=== PATIENT | male | born 1995 | race African-American/Black ===

== ENCOUNTER 2024-03-08 19:38 | Inpatient (IN) | payer MEDICAID, SELFPAY ==
[2024-03-08 19:48] VITALS: BP 122/63; PULSE 101; RESP 16; TEMP 36.6; O2SAT 99
[2024-03-08 19:54] LABS: Glucose Point of Care > 500 mg/dl (65-105)
[2024-03-08 20:13] LABS: Basophils Percent Auto 0.2 % (0.2-1.2); Eosinophils Percent Auto 0.1 % (0-4.4); Hematocrit 45.4 % (42.0-52.0); Hemoglobin 15.2 g/dL (14.0-18.0); Immature Granulocyte Absolute 0.17 K/mm3 (0.00-0.031); Immature Granulocyte Percent A 0.9 % (0-0.5); Lymphocytes Absolute Auto 2.19 K/mm3 (0.9-3.2); Lymphocytes Percent Auto 11.2 % (18.3-44.2); Mean Corpuscular HGB Conc 33.5 g/dl (32-36); Mean Corpuscular Volume 89.7 fl (80-100); Mean Platelet Volume 12.5 fl (7.4-10.4); Monocytes Absolute Auto 0.8 K/mm3 (0.1-0.6); Monocytes Percent Auto 3.8 % (2.6-8.5); Neutrophils Absolute Auto 16.3 K/mm3 (1.3-6.7); Neutrophils Percent Auto 83.8 % (45.5-73.1); Platelet Count Result 249 k/mm3 (150-375); Red Blood Count 5.06 M/mm3 (4.6-6.20); White Blood Count 19.5 K/mm3 (4.5-10.0)
[2024-03-08 21:04] LABS: Alanine Aminotransferase 31 U/L (6-50); Albumin Level 4.5 g/dL (3.5-5.1); Alkaline Phosphatase 164 U/L (38-126); Aspartate Amino Transferase 32 U/L (17-59); Bilirubin,Total 0.9 mg/dL (0.2-1.3); Blood Urea Nitrogen 39 mg/dL (9-20); Calcium 8.7 mg/dL (8.4-10.2); Carbon Dioxide < 5 mmol/L (22-30); Chloride 87 mmol/L (98-107); Estimated CRCL calculation 54 ml/min; Estimated Glomerular Filt Rate 52; Magnesium 2.1 mg/dL (1.6-2.3); Potassium 6.4 mmol/L (3.4-5.0); Sodium 122 mmol/L (137-145)
[2024-03-08 21:12] LABS: Glucose 640 mg/dL (65-110)
--- NOTE | 2024-03-08 21:47 | ED.GENADULT ---
HPI - General Adult General Chief complaint: Recheck/Abnormal Lab/Rx Stated complaint: out of insulin, Nausea Time Seen by Provider: 03/08/24 21:33 History of Present Illness HPI narrative: Patient is a 28-year-old male who presents to the emergency department this evening complaining of nausea, 1 episode of vomiting yesterday, lightheadedness, and body aches. Patient admits that he is an insulin-dependent diabetic and recently moved to this area and ran out of his insulin. Patient admits that he has not had insulin for the past 3 days and has not been able to get insurance to get his insulin. Patient normally takes 48 units of Lantus at night. Admits that he has been in DKA in the past a few times. Currently resting comfortably in bed and denying any chest pain, shortness of breath, abdominal pain, dysuria or hematuria. No additional symptoms or concerns at this time. Related Data Allergies Allergy/AdvReac Type Severity Reaction Status Date / Time No Known Allergies Allergy Verified 03/08/24 19:40 Review of Systems Review of Systems: All systems are reviewed and are negative unless stated otherwise in the HPI. Exam Narrative: General: Alert, awake, afebrile, in no acute distress. HEENT: PERRL, no rhinorrhea, no post nasal drip, oropharynx clear. Cardiovascular: Regular rate and rhythm, no murmurs, rubs or gallops, no peripheral edema. Respiratory: Clear to auscultation bilaterally, no tachypnea, no wheezing, no rhonchi, no rubs, no respiratory distress. Abdomen: Soft, nontender, nondistended, no rebound, no guarding, no peritoneal signs. Musculoskeletal: No joint swelling or deformity, normal muscle tone. Skin: No rashes or petechia, no signs of infection. Neurological: Alert and oriented to person, place, and time. Follows all commands. No focal deficits, speech is clear and fluent. Course Vital Signs Vital signs: Vital Signs Temperature 97.8 F 03/08/24 19:48 Pulse Rate 101 H 03/08/24 19:48 Respiratory Rate 16 03/08/24 19:48 Blood Pressure 122/63 03/08/24 19:48 Pulse Oximetry 99 03/08/24 19:48 Oxygen Delivery Room Air 03/08/24 19:48 Temperature 97.8 F 03/08/24 19:48 Pulse Rate 101 H 03/08/24 19:48 Respiratory Rate 16 03/08/24 19:48 Blood Pressure 122/63 03/08/24 19:48 Pulse Oximetry 99 03/08/24 19:48 Oxygen Delivery Room Air 03/08/24 19:48 Medical Decision Making MDM Narrative Medical decision making narrative: The patient was evaluated by myself in the emergency department. History is obtained from patient who is an independent historian and physical exam was performed. External medical records were reviewed at this time. IV was established and pertinent tests were ordered. Patient was administered 2 L IV fluid bolus with normal saline. Laboratory results obtained revealing a leukocytosis of 19.5, sodium of 122, potassium 6.4, chloride 87, carbon dioxide less than 5, BUN 39, creatinine 1.6, glucose 640, phosphorus 8, beta hydroxybutyrate 11.3. This time an ABG was ordered and is currently pending. Patient was started on IV insulin at a rate of 0.1 units/kg per hour. Case was discussed with the on-call mass communications instructor Dr. Vogel at 0 regarding ICU admission and per his request a 3rd L of normal saline bolus was ordered. Urinalysis revealed 2+ ketones, 3+ glucose and 1+ protein. Differential diagnosis considerations include hyperglycemia, dehydration, electrolyte derangements, DKA, acute viral syndrome. Comorbidities impacting this visit include history of insulin-dependent diabetes mellitus. I have evaluated and discussed social determinants of health with the patient that could potentially impact subsequent diagnosis and treatment plans. On repeat assessment of the patient, reevaluation revealed that the patient is doing well and is in no acute distress. Patient symptoms have improved since he arrived to our emergency department. Repeat vital signs we
[2024-03-08 22:06] LABS: Alveolar/Arterial O2 Gradient < 0.0 mmHg; Carboxyhemoglobin 0.7 % THb (0-2.0); Fractional Inspired Oxygen 21 %; HCO3 ABG 6.5 mEq/l (22.0-26.0); Methemoglobin ABG 0.4 %THb (0-1.5); Oxygen Content ABG 19.6 %vol (16.0-22.0); Oxygen Saturation ABG 97.9 % (95.0-100.0); Oxyhemoglobin 97.3 % THb (90.0-100.0); PO2 FiO2 Ratio Arterial Blood 6.29 %; Reduced Hemoglobin 1.6 %THb (0-5.0); Total Hemoglobin 14.2 g/dL (12.0-18.0)
[2024-03-08 22:09] LABS: Modified Allen's Test Pass; PCO2 ABG 18.6 mmHg (35.0-45.0); Site Drawn RIGHT RADIAL; pH ABG 7.161 (7.350-7.450)
[2024-03-08 22:19] LABS: Add Urine Microscopic? YES; Appearance Urine Clear (Clear); Bacteria Urine None Seen /hpf; Bilirubin Urine Negative (Negative); Blood Urine Trace (Negative); Color Urine Yellow (Yellow); Glucose Urine UA 3+ mg/dL (Negative); Ketones Urine 2+ mg/dL (Negative); Leukocyte Esterase Ur Negative LEU/UL (Negative); Need Manual Microscopic Reviewed; Nitrate Urine Negative (Negative); Protein Urine 1+ mg/dL (Negative); RBC Urine 0-2 /hpf (0-2); Specific Grav Ur 1.023 (1.001-1.035); Squamous Epithelial Cell Urine None Seen /hpf (Few); Urobilinogen Urine 0.2 mg/dL (<2.0); WBC Urine 0-5 /hpf (0-3); pH Urine 5.5 (5.0-9.0)
[2024-03-08] MEDS: SODIUM CHLORIDE 0.9% IV 1,000 ML 999 ML IV CONT ×2 (22:38→23:37)
[2024-03-08 23:11] VITALS: BP 104/70; PULSE 102; RESP 17; O2SAT 99
[2024-03-08 23:19] LABS: Glucose Point of Care > 500 mg/dl (65-105)
--- NOTE | 2024-03-08 23:31 | ADMGEN ---
This patient, Ori Rea, was admitted to Intensive Care Unit-9. Patient/family oriented to hospital policies and general routines including ID bracelet, bed and alarms, visiting hours, pain management, procedures, bathroom and other care routines, personal items, smoking policy, room service/diet, and visiting hours. Information on how to activate the Rapid Response Team has been discussed. Patient/Family are encouraged to report perceived risks to care and to ask questions if they do not understand what they are told or what they should do.
[2024-03-08 23:32] VITALS: BMI 23.9
[2024-03-08 23:35] VITALS: BP 123/65; PULSE 100; RESP 17; O2SAT 97
[2024-03-08] MEDS: INSULIN HUMAN REGULAR (*BKC) 100 UNITS in SODIUM CHLORIDE 0.9% IV 99 ML 6.5 UNITS IV CONT (23:35)
[2024-03-08 23:37] VITALS: PULSE 107
[2024-03-08 23:52] VITALS: PULSE 100; RESP 17; O2SAT 99
[2024-03-09] VITALS (14 sets, daily range): BP systolic 84–153; BP diastolic 49–98; PULSE 75–99; RESP 13–27; TEMP 36.4–37; O2SAT 96–100; BMI 25.4
[2024-03-09 00:26] LABS: Blood Urea Nitrogen 43 mg/dL (9-20); Calcium 8.1 mg/dL (8.4-10.2); Carbon Dioxide < 5 mmol/L (22-30); Chloride 91 mmol/L (98-107); Estimated CRCL calculation 51 ml/min; Estimated Glomerular Filt Rate 58; Glucose 685 mg/dL (65-110); Potassium 6.8 mmol/L (3.4-5.0); Sodium 124 mmol/L (137-145)
[2024-03-09] MEDS: SODIUM CHLORIDE 0.9% IV 1,000 ML 999 ML IV CONT (00:49)
[2024-03-09 00:51] LABS: Hemoglobin A1C 10.3 % (<5.7)
--- NOTE | 2024-03-09 01:00 | PC.NURSE ---
Serum blood glucose 658. Per protocol, pt received regular insulin bolus of 3.25 units and gtt was increased to 15.5 units. Order confirmed with Dr. Pulliam. Dose verified with NORMAN Rosales.
[2024-03-09 01:07] LABS: Glucose Point of Care > 500 mg/dl (65-105)
[2024-03-09] MEDS: SODIUM CHLORIDE 0.9% IV 1,000 ML 150 ML IV CONT (01:57)
[2024-03-09 01:58] LABS: Glucose Point of Care 481 mg/dl (65-105)
[2024-03-09 02:36] LABS: MRSA (PCR) NOT DETECTED (NOT DETECTE)
[2024-03-09 02:55] LABS: Glucose Point of Care 464 mg/dl (65-105)
[2024-03-09 03:43] LABS: Anion Gap 22 mmol/L (4-12); Blood Urea Nitrogen 43 mg/dL (9-20); Calcium 7.6 mg/dL (8.4-10.2); Carbon Dioxide 7 mmol/L (22-30); Chloride 100 mmol/L (98-107); Estimated CRCL calculation 54 ml/min; Estimated Glomerular Filt Rate > 60; Glucose 452 mg/dL (65-110); Potassium 4.6 mmol/L (3.4-5.0); Sodium 129 mmol/L (137-145)
[2024-03-09 04:02] LABS: Glucose Point of Care 425 mg/dl (65-105)
--- NOTE | 2024-03-09 04:59 | PM.IMHP ---
H&P: HPI History of Present Illness Date/Time: 03/09/24 04:59 Chief Complaint: Ran out of insulin 3 days ago Narrative: 28-year-old male with past medical history of type 1 diabetes mellitus who presented to the ER after being with without insulin for 3 days. Patient recently moved to [place] and has been unable to get insurance and does not have the ability to get his medications. He usually takes 48 units of Lantus at night. He became concerned yesterday due to developing symptoms of dizziness, thirst common nausea and body aches. He subjectively felt hot. He reports that he has a headache currently but he thinks that that is because he is thirsty. He noticed that he has not been able to produce very much urine over the last 24 hours prior to coming to the ER. Since he has arrived to the hospital he has had slight increase in urine output but still does not think he is back to normal. He denies dysuria, hematuria or or urinary urgency. He has not had any GI symptoms. He does smell strongly ketones. On arrival to the ER his glucoses were 640. He had a pH of 7.1 and a critically low serum bicarb. His potassium was also critically high due to potassium shifts with his acidosis. He has a evidence of acute kidney injury knee denies any history of chronic kidney disease. He denies any history of diabetic peripheral neuropathy but does have a chronic wound on his right lateral malleolus is been present since December. He denies any drainage erythema or warmth from the area. The wound has been healing it just been has been healing slow. He reports that his A1c is been anywhere between 8 and 14. He does not recall what his last A1c was. He last saw his diabetic doctor around December. He states that he is from [place] and has been traveling back and forth between [place] and here to visit his sister. He only recently decided to move to the area and stay here. He has only been here for about a week and has been out of insulin for 3 days. He reports that he was post have a job interview yesterday but felt so ill that he had come to the ER instead. Review of Systems Review of Systems: 12 systems were reviewed with pertinent positives and negatives per HPI. Except as documented in the HPI, all other systems were reviewed and are negative. [facility] Past Medical History Medical History (Updated 03/09/24 @ 05:05 by Esperanza Pulliam DO) Anxiety and depression Type 1 diabetes mellitus Surgical History Surgical History (Updated 03/09/24 @ 08:59 by Esperanza Pulliam DO) No history of previous surgery Family History Family History Mother Hypertension Grandparent Diabetes mellitus Social History Social History (Updated 03/09/24 @ 09:02 by Esperanza Pulliam DO) Social History: The patient reports that he has worked various jobs. He has a high school education. He recently moved to [place] from [place] February 2024. He did this to be closer to his sister. He does not have children and is not . He used to smoke a pack of cigarettes per day for 10 years but quit smoking December 2023. He does not drink alcohol but he does use marijuana daily. Code status: Full code Surrogate decision maker: Don Aburto (Sister) Smoking packs per day: 1 Smoking cigarettes per day: 20.0 Years smoked: 10 Smoking pack-years: 10.00 Smoking status: Former smoker Alcohol intake: never Substance use type: marijuana Other substance usage details: daily use of marijuana Do You Feel Safe in your Home?: Yes Lack of Transportation: No Lack of Food: Never True Current Housing: I Have Housing Concerned About Future Housing: No Difficulty Paying Gas/Electric Bills: No Difficulty Paying for Meds: YES Currently Unemployed: YES Education: High School Diploma/GED Difficulty w/ Childcare or Family Care: No Spiritual care concerns: No Meds
[2024-03-09 05:05] LABS: Glucose Point of Care 371 mg/dl (65-105)
[2024-03-09 05:34] LABS: Hematocrit 38.7 % (42.0-52.0); Hemoglobin 13.2 g/dL (14.0-18.0); Mean Corpuscular HGB Conc 34.1 g/dl (32-36); Mean Corpuscular Hemoglobin 30.4 pg (26-34); Mean Corpuscular Volume 89.2 fl (80-100); Mean Platelet Volume 12.6 fl (7.4-10.4); Platelet Count Result 223 k/mm3 (150-375); Red Blood Count 4.34 M/mm3 (4.6-6.20)
[2024-03-09 06:17] LABS: Thyroid Stimulating Hormone Reflex 0.177 uIU/mL (0.465-4.68)
[2024-03-09 06:20] LABS: Glucose Point of Care 312 mg/dl (65-105)
[2024-03-09 07:20] LABS: Free T4 Free Thyroxine Reflex 0.91 ng/dL (0.78-2.19)
[2024-03-09] MEDS: INSULIN HUMAN REGULAR (*BKC) 100 UNITS in SODIUM CHLORIDE 0.9% IV 99 ML 15.25 UNITS IV CONT (07:20)
[2024-03-09 07:24] LABS: Glucose Point of Care 257 mg/dl (65-105)
[2024-03-09 07:51] LABS: Anion Gap 15 mmol/L (4-12); Blood Urea Nitrogen 38 mg/dL (9-20); Calcium 7.7 mg/dL (8.4-10.2); Carbon Dioxide 11 mmol/L (22-30); Chloride 105 mmol/L (98-107); Estimated CRCL calculation 71 ml/min; Estimated Glomerular Filt Rate > 60; Glucose 246 mg/dL (65-110); Potassium 4.4 mmol/L (3.4-5.0); Sodium 131 mmol/L (137-145)
[2024-03-09 08:12] LABS: Total Triiodothyronine (T3) 0.59 NG/ML (0.97-1.69)
[2024-03-09] MEDS: KCL 20 MEQ/D5/0.45% SOD CHL 1,000 ML 150 ML IV CONT ×2 (08:21→14:55)
[2024-03-09] MEDS: ENOXAPARIN 40 MG/0.4 ML SYRINGE SUB-Q (08:23)
[2024-03-09 08:33] LABS: Glucose Point of Care 188 mg/dl (65-105)
[2024-03-09 09:50] LABS: Glucose Point of Care 161 mg/dl (65-105)
[2024-03-09 10:32] LABS: Glucose Point of Care 158 mg/dl (65-105)
[2024-03-09 11:44] LABS: Glucose Point of Care 169 mg/dl (65-105)
[2024-03-09 11:47] LABS: Anion Gap 10 mmol/L (4-12); Blood Urea Nitrogen 31 mg/dL (9-20); Calcium 7.9 mg/dL (8.4-10.2); Carbon Dioxide 17 mmol/L (22-30); Chloride 106 mmol/L (98-107); Estimated CRCL calculation 77 ml/min; Estimated Glomerular Filt Rate > 60; Glucose 165 mg/dL (65-110); Potassium 5.1 mmol/L (3.4-5.0); Sodium 133 mmol/L (137-145)
--- NOTE | 2024-03-09 12:13 | WPDCNINT ---
Assessment and Plan Assessment and plan (1) DKA (diabetic ketoacidosis): Qualifiers: Diabetes mellitus complication detail: without coma Diabetes mellitus type: type 1 Qualified Code(s): E10.10 - Type 1 diabetes mellitus with ketoacidosis without coma Code(s): E11.10 - Type 2 diabetes mellitus with ketoacidosis without coma Status: Acute Assessment and Plan: Patient presented with elevated blood sugars, increased thirst, weakness, nausea, vomiting -was found to have elevated blood sugars, beta hydroxybutyrate, anion gap metabolic acidosis in the ER -received a total of 3 L of IV fluids between the ER and the ICU, started on insulin infusion -will infuse 1 L of LR bolus today -remains on insulin infusion -will transition patient to long-acting insulin Lantus and sliding scale insulin once anion gap closes. (2) Acute kidney injury: Code(s): N17.9 - Acute kidney failure, unspecified Status: Acute Assessment and Plan: Patient presented with a creatinine of 1.60 on admission -received adequate amount of fluids, a total of 3 L between the ER and ICU overnight -also bolused 1 L of LR this morning -creatinine down to 1.10 this morning (3) Type 1 diabetes mellitus not at goal: Code(s): E10.9 - Type 1 diabetes mellitus without complications Status: Acute Assessment and Plan: Hemoglobin A1c is 10.3 this admission Plan DVT prophylaxis: Lovenox Stress ulcer prophylaxis: Not indicated Nutrition: NPO Code Status: Full code Critical Care Time Spent: 46 minutes Due to a high probability of clinically significant, life threatening deterioration, the patient required my highest level of preparedness to intervene emergently and I personally spent this critical care time directly and personally managing the patient. This critical care time included obtaining a history; examining the patient; pulse oximetry; ordering and review of studies; arranging urgent treatment with development of a management plan; evaluation of patient's response to treatment; frequent reassessment; and discussions with other providers. It was exclusive of separately billable procedures and treating other patients and teaching time. Please see Assessment and Plan section and the rest of the note for further information on patient assessment and treatment This dictation may have been done utilizing a voice recognition system. Attempts have been made to correct errors. However, there may be uncorrected grammatical, spelling, and recognitions errors present. Phlebotomist Lab Assistant Consult Note Consult date: 03/09/24 Reason for consult: Diabetic ketoacidosis, nausea, vomiting, lightheadedness, body aches, out of insulin for 3 days HPI: Ori Rea is a 28 year old male with past medical history of type 1 diabetes, anxiety, depression presented the ED on 03/08/2024 with complains of dizziness, increased thirst, nausea, vomiting, body aches. He has been out of his insulin for 3 days since he moved from [place] to be with his sister [facility] and [place]. He takes 48 units of Lantus at night and Humalog prior to meals. Patient was found to have a blood glucose level of 640 in the ER, pH of 7.1, significantly elevated anion gap and beta hydroxybutyrate. Patient was given a total 3 L of IV fluids in the ER and ICU, placed on insulin infusion and transfer the ICU for further management. Patient seen and examined this morning in the ICU, a pleasant gentleman in no acute distress, denies any chest pain, shortness on breath, abdominal pain, nausea, vomiting. Hemodynamically stable, remains on insulin infusion . Urine output has been low, patient is afebrile but hemodynamically stable. Review of Systems Review of Systems: All systems reviewed & are unremarkable except as noted in HPI and below PMFSH Past Medical History Medical History (Updated 03/09/24 @ 05:05 by Esperanza Pulliam DO) Anxiety and depression Type 1 diabetes neyda
[2024-03-09] MEDS: LACTATED RINGERS 1,000 ML 999 ML IV CONT (12:34)
[2024-03-09 12:36] LABS: Glucose Point of Care 174 mg/dl (65-105)
[2024-03-09 13:38] LABS: Glucose Point of Care 173 mg/dl (65-105)
[2024-03-09 14:58] LABS: Glucose Point of Care 207 mg/dl (65-105)
[2024-03-09 16:03] LABS: Glucose Point of Care 250 mg/dl (65-105)
[2024-03-09 16:35] LABS: Anion Gap 10 mmol/L (4-12); Blood Urea Nitrogen 23 mg/dL (9-20); Calcium 7.9 mg/dL (8.4-10.2); Carbon Dioxide 17 mmol/L (22-30); Chloride 106 mmol/L (98-107); Estimated CRCL calculation 93 ml/min; Estimated Glomerular Filt Rate > 60; Glucose 226 mg/dL (65-110); Potassium 4.6 mmol/L (3.4-5.0); Sodium 133 mmol/L (137-145)
[2024-03-09 16:49] LABS: Glucose Point of Care 222 mg/dl (65-105)
[2024-03-09] MEDS: INSULIN GLARGINE (*BKC) 100 UNITS/ML 48 UNITS SUB-Q (17:20)
[2024-03-09 18:05] LABS: Glucose Point of Care 249 mg/dl (65-105)
[2024-03-09 19:16] LABS: Glucose Point of Care 250 mg/dl (65-105)
[2024-03-09] MEDS: INSULIN ASPART (*BKC) 100 UNITS/ML SUB-Q (20:58)
[2024-03-09 21:03] LABS: Glucose Point of Care 255 mg/dl (65-105)
[2024-03-10] VITALS (8 sets, daily range): BP systolic 113–150; BP diastolic 69–109; PULSE 84–100; RESP 14–19; TEMP 36.5–36.9; O2SAT 96–99
[2024-03-10 04:41] LABS: Basophils Percent Auto 0.2 % (0.2-1.2); Eosinophils Absolute Auto 0.1 K/mm3 (0-0.3); Eosinophils Percent Auto 0.5 % (0-4.4); Hematocrit 39.7 % (42.0-52.0); Hemoglobin 13.8 g/dL (14.0-18.0); Immature Granulocyte Absolute 0.03 K/mm3 (0.00-0.031); Immature Granulocyte Percent A 0.2 % (0-0.5); Lymphocytes Absolute Auto 2.39 K/mm3 (0.9-3.2); Lymphocytes Percent Auto 18.6 % (18.3-44.2); Mean Corpuscular HGB Conc 34.8 g/dl (32-36); Mean Corpuscular Hemoglobin 30.1 pg (26-34); Mean Corpuscular Volume 86.5 fl (80-100); Mean Platelet Volume 11.5 fl (7.4-10.4); Monocytes Absolute Auto 0.7 K/mm3 (0.1-0.6); Monocytes Percent Auto 5.4 % (2.6-8.5); Neutrophils Absolute Auto 9.7 K/mm3 (1.3-6.7); Neutrophils Percent Auto 75.1 % (45.5-73.1); Platelet Count Result 201 k/mm3 (150-375); Red Blood Count 4.59 M/mm3 (4.6-6.20); Red Cell Distribution Width 12.3 % (11.5-14.5); White Blood Count 12.9 K/mm3 (4.5-10.0)
[2024-03-10 05:04] LABS: Alanine Aminotransferase 23 U/L (6-50); Albumin Level 3.3 g/dL (3.5-5.1); Alkaline Phosphatase 105 U/L (38-126); Anion Gap 7 mmol/L (4-12); Aspartate Amino Transferase 32 U/L (17-59); Bilirubin,Total 1.7 mg/dL (0.2-1.3); Blood Urea Nitrogen 15 mg/dL (9-20); Calcium 8.4 mg/dL (8.4-10.2); Carbon Dioxide 21 mmol/L (22-30); Chloride 107 mmol/L (98-107); Estimated CRCL calculation 93 ml/min; Estimated Glomerular Filt Rate > 60; Glucose 178 mg/dL (65-110); Magnesium 1.9 mg/dL (1.6-2.3); Potassium 4.5 mmol/L (3.4-5.0); Sodium 135 mmol/L (137-145)
[2024-03-10] MEDS: INSULIN ASPART (*BKC) 100 UNITS/ML SUB-Q ×4 (07:47→17:06)
[2024-03-10] MEDS: ENOXAPARIN 40 MG/0.4 ML SYRINGE SUB-Q (07:49)
[2024-03-10 07:55] LABS: Glucose Point of Care 200 mg/dl (65-105)
[2024-03-10] MEDS: POTASSIUM PHOS/SODIUM PHOS 250 MG TABLET PO (09:00)
--- NOTE | 2024-03-10 09:46 | WPDINTPN ---
Progress Note: A&P Assessment and Plan (1) DKA (diabetic ketoacidosis): Qualifiers: Diabetes mellitus complication detail: without coma Diabetes mellitus type: type 1 Qualified Code(s): E10.10 - Type 1 diabetes mellitus with ketoacidosis without coma Code(s): E11.10 - Type 2 diabetes mellitus with ketoacidosis without coma Status: Acute Assessment and Plan: Patient presented with elevated blood sugars, increased thirst, weakness, nausea, vomiting -was found to have elevated blood sugars, beta hydroxybutyrate, anion gap metabolic acidosis in the ER -received a total of 3 L of IV fluids between the ER and the ICU, started on insulin infusion, additional IV fluid bolus was given on 03/09/2024 a.m. -patient was transition to long-acting insulin and sliding scale insulin wanted 124 evening -will increase Lantus today, continue Accu-Cheks and sliding scale insulin -leukocytosis has improved to close to normal (2) Acute kidney injury: Code(s): N17.9 - Acute kidney failure, unspecified Status: Acute Assessment and Plan: Patient presented with a creatinine of 1.60 on admission -received adequate amount of fluids, a total of 3 L between the ER and ICU overnight -also bolused 1 L of LR this morning -creatinine back to baseline abnormal at 0.90 this morning with adequate urine output (3) Type 1 diabetes mellitus not at goal: Code(s): E10.9 - Type 1 diabetes mellitus without complications Status: Acute Assessment and Plan: Hemoglobin A1c is 10.3 this admission Plan DVT prophylaxis: Lovenox Stress ulcer prophylaxis: Not indicated Nutrition: NPO Code Status: Full code Critical Care Time Spent: 31 minutes Discussed with patient updated with his condition and plan of care. Patient may transfer out of the ICU if okay with hospitalist Due to a high probability of clinically significant, life threatening deterioration, the patient required my highest level of preparedness to intervene emergently and I personally spent this critical care time directly and personally managing the patient. This critical care time included obtaining a history; examining the patient; pulse oximetry; ordering and review of studies; arranging urgent treatment with development of a management plan; evaluation of patient's response to treatment; frequent reassessment; and discussions with other providers. It was exclusive of separately billable procedures and treating other patients and teaching time. Please see Assessment and Plan section and the rest of the note for further information on patient assessment and treatment This dictation may have been done utilizing a voice recognition system. Attempts have been made to correct errors. However, there may be uncorrected grammatical, spelling, and recognitions errors present. Subjective Date/time seen: 03/10/24 09:46 Interval history: Reason for consult: Diabetic ketoacidosis, nausea, vomiting, lightheadedness, body aches, out of insulin for 3 days 03/10/2024: Patient seen and examined the ICU. Is awake, alert, oriented. No issues overnight, denies any chest pain, shortness a breath, nausea, vomiting, abdominal pain. Blood sugars have been stable, gap remains closed this morning. Patient was transition to long-acting Lantus and scale insulin yesterday evening Review of Systems Review of Systems: All systems reviewed & are unremarkable except as noted in HPI and below Exam Narrative: General: Pleasant gentleman in no acute distress HEENT:? Pupils equal and reactive, sclera is clear, dry oral mucosa Neck:? Supple Respiratory:? Clear to auscultation bilaterally, no wheezing Cardiac:? S1-S2 normal, regular rate and rhythm Abdomen:? Soft, nontender, nondistended, normoactive bowel sounds Extremities:? No edema, palpable pedal pulses Neuro:? Patient is awake, alert, oriented, nonfocal Skin:? Left lateral malleolus as chronic thickening and scarri
--- NOTE | 2024-03-10 10:20 | PCCDE ---
diabetes education f/up: POC BG 03/09: [phone], 03/10 200 current DM meds: 03/09 high dose correction TID WM, AND HS, 03/10 increase Lantus to 52 units HS PO intake has been 100% called Dr Spears; pt has T1D and eating 100% so recommended to add 4 units Novolog TID WM (pt uses 1:15 carb ratio and trays provide 60g CHO).
[2024-03-10 12:10] LABS: Glucose Point of Care 266 mg/dl (65-105)
--- NOTE | 2024-03-10 13:13 | PM.IMPN ---
Progress Note: A&P Assessment and Plan (1) Acute kidney injury: Code(s): N17.9 - Acute kidney failure, unspecified Status: Acute Assessment and Plan: Resolved with fluids creat is NL now (2) Type 1 diabetes mellitus not at goal: Code(s): E10.9 - Type 1 diabetes mellitus without complications Status: Acute Assessment and Plan: Pts hbiac is over 10 Restart lantus 48 units at night And novolog 5 with meals Pt seen by DM educator (3) DKA (diabetic ketoacidosis): Qualifiers: Diabetes mellitus complication detail: without coma Diabetes mellitus type: type 1 Qualified Code(s): E10.10 - Type 1 diabetes mellitus with ketoacidosis without coma Code(s): E11.10 - Type 2 diabetes mellitus with ketoacidosis without coma Status: Acute Assessment and Plan: pt treated with insulin drip ok to transition to insulin can dc ok to ICU onto the medical floor pt will need to rejoin with PCP practice on Dc Subjective Date/time seen: 03/10/24 13:13 Interval history: 28-year-old male with past medical history of type 1 diabetes mellitus who presented to the ER after being with without insulin for 3 days. Patient recently moved to [place] and has been unable to get insurance and does not have the ability to get his medications. He usually takes 48 units of Lantus at night. He became concerned yesterday due to developing symptoms of dizziness, thirst common nausea and body aches. Admitted with DKA Pt states he ran out of his insulin Pt is off insulin drip today can dc out of ICU Blood sugars are in the 200s today Pt to continue Lantus and NovoLog with meals today Hopeful Dc tomorrow Pt seen by dm educator Pt will need PCP on DC new to the area from [place] Review of Systems Review of Systems: No specific complaints Exam Const: General: cooperative and other (younger male ); No in distress Nutritional Appearance: overweight Orientation/consciousness: oriented to person HENMT: Head: normal to inspection Resp: Effort & Inspection: no respiratory distress Auscultation: no rhonchi and no wheezes Cardio: Rate: regular rate Rhythm: regular rhythm GI: Inspection: normal to inspection GI Palp: No abdominal tenderness, No Guarding due to palpation present (GI) and No Hepatomegaly present Auscultation: normal bowel sounds Neuro: General: oriented to person Objective Data Vital Signs Vital Signs: Vital Signs - 24 hr 03/09/24 14:00 03/09/24 14:00 03/09/24 16:00 Temperature Pulse Rate 90 92 97 Respiratory Rate 17 Blood Pressure 134/86 Pulse Oximetry 96 03/09/24 16:00 03/09/24 18:00 03/09/24 18:00 Temperature 36.8 C Pulse Rate 97 95 95 Respiratory Rate 18 16 Blood Pressure 114/75 153/98 H Pulse Oximetry 96 97 03/09/24 20:00 03/09/24 20:00 03/09/24 22:00 Temperature 37.0 C Pulse Rate 99 93 93 Respiratory Rate 14 Blood Pressure 146/96 H Pulse Oximetry 99 03/09/24 22:00 03/10/24 00:00 03/10/24 00:00 Temperature 36.8 C Pulse Rate 93 91 91 Respiratory Rate 16 17 Blood Pressure 118/74 120/82 Pulse Oximetry 96 98 03/10/24 02:00 03/10/24 02:00 03/10/24 04:00 Temperature Pulse Rate 89 89 86 Respiratory Rate 17 Blood Pressure 113/69 Pulse Oximetry 96 03/10/24 04:00 03/10/24 06:00 03/10/24 06:00 Temperature 36.5 C Pulse Rate 100 85 85 Respiratory Rate 16 15 Blood Pressure 127/91 H 135/97 H Pulse Oximetry 98 97 03/10/24 08:00 03/10/24 08:00 Temperature 36.5 C Pulse Rate 100 84 Respiratory Rate 14 Blood Pressure 135/97 H Pulse Oximetry 99 Intake/Output Intake/Output: Intake & Output 03/07/24 03/08/24 03/09/24 03/10/24 23:59 23:59 23:59 23:59 Intake Total 1000 5906.3 440 Output Total 850 1200 Balance 1000 5056.3 -760 Meds/Results Medications: Active Medications Generic Name Dose Route Start Last Admin Trade Name Freq PRN Reason Stop
[2024-03-10 16:58] LABS: Glucose Point of Care 360 mg/dl (65-105)
[2024-03-10] MEDS: INSULIN GLARGINE (*BKC) 100 UNITS/ML 52 UNITS SUB-Q (17:03)
[2024-03-10 19:40] LABS: Glucose Point of Care 206 mg/dl (65-105)
[2024-03-11 05:34] LABS: Anion Gap 7 mmol/L (4-12); Blood Urea Nitrogen 11 mg/dL (9-20); Calcium 8.6 mg/dL (8.4-10.2); Carbon Dioxide 25 mmol/L (22-30); Chloride 103 mmol/L (98-107); Estimated CRCL calculation 104 ml/min; Estimated Glomerular Filt Rate > 60; Glucose 51 mg/dL (65-110); Potassium 3.6 mmol/L (3.4-5.0); Sodium 135 mmol/L (137-145)
[2024-03-11 05:40] LABS: Glucose Point of Care 51 mg/dl (65-105)
[2024-03-11 06:08] LABS: Glucose Point of Care 119 mg/dl (65-105)
[2024-03-11 08:00] VITALS: BP 132/91; PULSE 100; RESP 17; TEMP 36.8; O2SAT 99
[2024-03-11] MEDS: ENOXAPARIN 40 MG/0.4 ML SYRINGE SUB-Q (08:06)
[2024-03-11] MEDS: INSULIN ASPART (*BKC) 100 UNITS/ML SUB-Q ×3 (08:06→16:46)
[2024-03-11 08:12] LABS: Glucose Point of Care 222 mg/dl (65-105)
[2024-03-11 12:08] LABS: Glucose Point of Care 249 mg/dl (65-105)
--- NOTE | 2024-03-11 12:33 | PM.DS ---
DS: Admitting Diagnosis Discharge Date 03/11/2024 Admitting Diagnosis Ran out of insulin 3 days ago DS: Discharge Diagnosis Discharge Diagnosis (1) Acute kidney injury: Code(s): N17.9 - Acute kidney failure, unspecified Status: Acute Assessment and Plan: Resolved with fluids creat is NL now (2) Type 1 diabetes mellitus not at goal: Code(s): E10.9 - Type 1 diabetes mellitus without complications Status: Acute Assessment and Plan: Pts hbiac is over 10 Restart lantus 48 units at night And novolog 5 with meals Pt seen by DM educator pt to dc on humalog 5 units with meals and basal insulin 48 units at night kwgenevieve (3) DKA (diabetic ketoacidosis): Qualifiers: Diabetes mellitus complication detail: without coma Diabetes mellitus type: type 1 Qualified Code(s): E10.10 - Type 1 diabetes mellitus with ketoacidosis without coma Code(s): E11.10 - Type 2 diabetes mellitus with ketoacidosis without coma Status: Acute Assessment and Plan: pt treated with insulin drip ok to transition to insulin onto the medical floor doing well pt will need to rejoin with PCP practice on Dc DS: Summary Hospital Course Hospital Course: Admitted with DKA Pt states he ran out of his insulin Pt is off insulin drip today can dc out of ICU Blood sugars are in the 200s today Pt to continue Lantus and NovoLog with meals today Hopeful Dc tomorrow Pt seen by dm educator she will decided regime on dc Pt will need PCP on DC new to the area from [place] Time Spent with Patient Time attestation: Total time spent providing and/or coordinating discharge services:50 minutes on day of dc Exam Narrative: General: Pleasant gentleman in no acute distress HEENT:? Pupils equal and reactive, sclera is clear, dry oral mucosa Neck:? Supple Respiratory:? Clear to auscultation bilaterally, no wheezing Cardiac:? S1-S2 normal, regular rate and rhythm Abdomen:? Soft, nontender, nondistended, normoactive bowel sounds Extremities:? No edema, palpable pedal pulses Neuro:? Patient is awake, alert, oriented, nonfocal Skin:? Left lateral malleolus as chronic thickening and scarring, right lateral malleolus with a chronic ulcer with scarring eschar. Psych:? Normal mentation and affect DS: Data Data Completed and Pending Labs on day of discharge: Labs from last 24 hours 03/11/24 03/11/24 03/11/24 12:03 08:05 06:06 Sodium Potassium Chloride Carbon Dioxide Anion Gap BUN Creatinine Estim Creat Clear Calc Estimated GFR Glucose POC Capillary Glucose 249 H 222 H 119 H Calcium 03/11/24 03/11/24 03/10/24 05:38 05:02 19:36 Sodium 135 L Potassium 3.6 Chloride 103 Carbon Dioxide 25 Anion Gap 7 BUN 11 Creatinine 0.80 Estim Creat Clear Calc 104 Estimated GFR > 60 Glucose 51 L* POC Capillary Glucose 51 L* 206 H Calcium 8.6 03/10/24 16:55 Sodium Potassium Chloride Carbon Dioxide Anion Gap BUN Creatinine Estim Creat Clear Calc Estimated GFR Glucose POC Capillary Glucose 360 H Calcium Discharge Plan Discharge Attending physician on discharge: Kasey Spears Discharging Clinician: Kasey Spaers Anticipated Discharge Date/Time: 03/11/24 12:27 Patient Disposition: Home, Self-Care Activity: as tolerated Diet: diabetic Discharge Instructions: DKA Pt to follow with DM educator in 2-3 weeks time Pt awaiting PCP- establishing care Patient Instructions: Antibiotic Form, Pain Management (DC), Diabetic Ketoacidosis (DC), Basic Carbohydrate Counting (DC) Stand Alone Forms: General Discharge Information Follow-up/Referrals: PHYSICIAN,HEAVY DUTY MECHANIC [Primary Care Provider] - (pt will need to find her PCP ) Discharge Medications: New (DME) lancets [Accu-Chek Softclix Lancets] Misc See Rx Instructions .ROUTE .MEDSUPPLY Qty: 50 0RF Rx Instruct
[2024-03-11 16:00] VITALS: BP 134/79; PULSE 78; RESP 16; TEMP 36.6; O2SAT 98
[2024-03-11] MEDS: INSULIN GLARGINE (*BKC) 100 UNITS/ML 52 UNITS SUB-Q (16:44)
[2024-03-11 16:52] LABS: Glucose Point of Care 214 mg/dl (65-105)
== END 2024-03-11 18:24 | disposition home or self-care (01) | DRG 420 ==
LOC: ANHED 22:38 → ANHICU 22:44
PROVIDERS: Internal Medicine; Admitting Provider Internal Medicine; Emergency Provider Emergency Medicine; Visit Provider Family Medicine
DX: E10.10 Type 1 diabetes mellitus with ketoacidosis without coma (principal); N17.9 Acute kidney failure, unspecified; E87.5 Hyperkalemia; L97.319 Non-pressure chronic ulcer of right ankle with unspecified severity; F41.9 Anxiety disorder, unspecified; F32.A Depression, unspecified; Z79.4 Long term (current) use of insulin; Z87.891 Personal history of nicotine dependence; Z91.148 Patient's other noncompliance with medication regimen for other reason
CPT/HCPCS: 36415; 36600; 80048; 80053; 81001; 82010; 82375; 82805; 82810; 82948; 83036; 83050; 83735; 84100; 84439; 84443; 84480; 85018; 85025; 85027; 87641; 99285; A9270; J1650; J1815; J3480; J7030; J7120

== ENCOUNTER 2024-03-12 20:22 | Emergency (ER) | payer MEDICAID, SELFPAY ==
--- NOTE | ~2024-03-12 | XR_ITS ---
EXAMINATION: XR ankle LT min 3V DATE: 03/12/2024 20:48 INDICATION: Left ankle injury. TECHNIQUE: 4 views of left ankle were obtained. COMPARISON: None. FINDINGS: There is an oblique fracture of distal fibula with medial aspect of the fracture line at th e level of the tibial plafond. The distal fracture fragment demonstrates 5 mm posterior displacement, 3 mm lateral displacement, and 9 degrees lateral angulation. There is a transverse fracture of media l malleolus. The distal fracture fragment demonstrates 12 mm lateral displacement. There is a displac ed fracture of the posterior malleolus. There is lateral subluxation of talus with respect to the tib ial plafond. Other joint spaces are normal. Ankle soft tissue swelling is noted. IMPRESSION: 1. Trimalleolar ankle fracture. Reviewed, dictated and finalized at location A.
--- NOTE | ~2024-03-12 | XR_ITS ---
EXAMINATION: XR ankle LT min 3V DATE: 03/12/2024 23:00 INDICATION: Left ankle injury. TECHNIQUE: 3 views of left ankle were obtained. COMPARISON: Left ankle radiographs 8:34 PM FINDINGS: There is an oblique fracture of distal fibula with medial aspect of the fracture line 3 mm distal to the level of the tibial plafond. The distal fracture fragment demonstrates 2 mm posterior d isplacement, 5 degrees posterior angulation, 4 mm lateral displacement, and 9 degrees lateral angulat ion. There is a transverse fracture of medial malleolus. The distal fracture fragment demonstrates 8 mm lateral displacement. A definite fracture of posterior malleolus is not identified. There is later al subluxation of talus with respect to tibial plafond. Joint spaces are normal. IMPRESSION: 1. Bimalleolar ankle fracture. Reviewed, dictated and finalized at location A.
[2024-03-12 20:28] VITALS: BP 156/106; PULSE 110; RESP 16; TEMP 36.4; O2SAT 100
--- NOTE | 2024-03-12 21:15 | ED.GENADULT ---
[facility] - General Adult General Chief complaint: Extremity Injury, Lower Stated complaint: left ankle injury Time Seen by Provider: 03/12/24 21:15 Source: patient Mode of arrival: ambulatory Limitations: no limitations History of Present Illness HPI narrative: This is a 28-year-old male who presents to the ED for chief complaint of left ankle injury that occurred just prior to arrival. Patient was roller-skating when he accidentally fell backwards and twisted the ankle. States that he fell directly onto his left ankle has significant difficulty with weight-bearing after the injury. Denies any further sites of pain or injury. Denies numbness or weakness. Related Data Allergies Allergy/AdvReac Type Severity Reaction Status Date / Time No Known Allergies Allergy Verified 03/08/24 19:40 Review of Systems Review of Systems: All systems as dictated in [facility] Past Medical History Medical History (Updated 03/12/24 @ 22:13 by Amadou Campbell PA-C) Anxiety and depression Type 1 diabetes mellitus Surgical History Surgical History (Updated 03/09/24 @ 08:59 by Esperanza Pulliam DO) No history of previous surgery Family History Family History Mother Hypertension Grandparent Diabetes mellitus Social History Social History (Updated 03/09/24 @ 09:02 by Esperanza Pulliam DO) Social History: The patient reports that he has worked various jobs. He has a high school education. He recently moved to [place] from [place] February 2024. He did this to be closer to his sister. He does not have children and is not . He used to smoke a pack of cigarettes per day for 10 years but quit smoking December 2023. He does not drink alcohol but he does use marijuana daily. Code status: Full code Surrogate decision maker: Don Aburto (Sister) Smoking packs per day: 1 Smoking cigarettes per day: 20.0 Years smoked: 10 Smoking pack-years: 10.00 Smoking status: Former smoker Alcohol intake: never Substance use type: marijuana Other substance usage details: daily use of marijuana Do You Feel Safe in your Home?: Yes Lack of Transportation: No Lack of Food: Never True Current Housing: I Have Housing Concerned About Future Housing: No Difficulty Paying Gas/Electric Bills: No Difficulty Paying for Meds: YES Currently Unemployed: YES Education: High School Diploma/GED Difficulty w/ Childcare or Family Care: No Spiritual care concerns: No Exam Narrative: GENERAL: Well-appearing, well-nourished, and in no acute distress. HEAD: Normocephalic, atraumatic. EYES: PERRLA and EOMI. ENT: Nares clear, no rhinorrhea or epistaxis. Mucous membranes moist. Oropharynx without tonsillar hypertrophy exudate or other lesions. NECK: Supple. No adenopathy or masses. CHEST: No respiratory distress. Clear to auscultation. No wheezes rales or rhonchi HEART: Regular rate and rhythm. No murmur heard. Normal peripheral pulses. ABDOMEN: Soft, nontender, nondistended, normal active bowel sounds. MSK: Significant swelling, bruising and tenderness throughout the left ankle joint. No gross deformity Neurovascularly intact distally with DP pulses and good cap refill. SKIN: Warm, dry, no rash. NEURO: Alert and oriented x4. No focal deficits. PSYCH: Normal mood and affect. Course Consultations Consultation #1: Spoke with Orthopedics, Dr. Avalos, who is fine with posterior splint and stirrup splint here. Recommending slight internal rotation and medial pressure on the foot for reduction of subluxation seen on x-ray. Date: 03/12/24 Time: 21:45 Vital Signs Vital signs: Vital Signs Temperature 97.5 F L 03/12/24 20:28 Pulse Rate 110 H 03/12/24 20:28 Respiratory Rate 16 03/12/24 20:28 Blood Pressure 156/106 H 03/12/24 20:28 Pulse Oximetry 100 03/12/24 20:28 Temperature 97.5 F L 03/12/24 20:28 Pulse Rate 97 10
[2024-03-12] MEDS: SODIUM CHLORIDE 0.9% IV 1,000 ML 999 ML IV CONT (21:28)
[2024-03-12] MEDS: ONDANSETRON INJ 4 MG/2 ML VIAL IV PUSH (21:28)
[2024-03-12] MEDS: HYDROmorphone HCL INJ (*CRX) 1 MG/ML SYR 0.5 MG IV PUSH (21:29)
[2024-03-12 23:05] LABS: Glucose Point of Care 324 mg/dl (65-105)
--- NOTE | 2024-03-12 23:09 | PC.NURSE ---
While crutch training patient, patient stated he felt comfortable and walked without assistance. When turning to sit back on the bed, patient said I'm going down and this RN helped patient to the floor. Patient did not hit his head or lose consciousness. Patient assisted back in bed with charge at bedside.This RN did not see his cast leg endure any trauma. Patient reports he heard a pop and has pain. EDP made aware and ankle x-ray ordered by EDP. JODYB to check patient's blood sugar.
[2024-03-13 00:03] VITALS: BP 142/80; PULSE 97; RESP 16; O2SAT 100
== END 2024-03-13 00:05 | disposition home or self-care (01) ==
PROVIDERS: Emergency Provider Physician Assistant
DX: S82.852A Displaced trimalleolar fracture of left lower leg, initial encounter for closed fracture (principal); E10.9 Type 1 diabetes mellitus without complications; Z87.891 Personal history of nicotine dependence; V00.121A Fall from non-in-line roller-skates, initial encounter; Y93.51 Activity, roller skating (inline) and skateboarding; Z79.4 Long term (current) use of insulin
CPT/HCPCS: 27818; 73610; 82948; 96374; 96375; 99285; J1171; J2405; J7030

== ENCOUNTER 2024-03-13 22:24 | Emergency (ER) | payer MEDICAID, SELFPAY ==
--- NOTE | ~2024-03-13 | XR_ITS ---
EXAMINATION: XR ankle LT min 3V DATE: 03/13/2024 22:53 INDICATION: Left ankle fracture TECHNIQUE: Anteroposterior, mortise, and lateral views of the left ankle were obtained. COMPARISON: 03/12/2024 FINDINGS: Groundglass splinting about the left ankle. Again seen is a trimalleolar fracture of the left ankle. One cortical width posterior and lateral displacement and slight posterior angulation of the lateral malleolar fracture. 7 mm distraction and 4 mm medial displacement of the medial malleolar fragment. 4 mm posterior displacement of the lateral malleolar fragment. No other fractures identified. There is mild posterior lateral subluxation of the talar dome in conjunction with respect to the tibial plafo nd and in conjunction with the medial lateral malleoli fragments. Normal alignment and joint spaces i n the left foot. IMPRESSION: 1. Splinted trimalleolar fracture of the left ankle with residual mild displacement of the 3 malleola r fragments and mild posterolateral subluxation of the talar dome with respect to the tibial plafond. Reviewed, dictated and finalized at location A. IMPRESSION: 1. Splinted trimalleolar fracture of the left ankle with residual mild displace ment of the 3 malleolar fragments and mild posterolateral subluxation of the ta lar dome with respect to the tibial plafond.
[2024-03-13 22:19] VITALS: BP 142/111; PULSE 108; RESP 14; TEMP 36.8; O2SAT 99
[2024-03-13] MEDS: HYDROcodone/acetaminophen (*CRX) 5-325 MG TABLET 1 TAB PO (22:59)
--- NOTE | 2024-03-14 00:09 | ED.FALL ---
HPI - Fall General Chief Complaint: Fall Stated Complaint: FALL/HEAD INJURY WITH +LOC Time Seen by Provider: 03/13/24 22:30 Source: patient Mode of arrival: EMS Limitations: no limitations History of Present Illness HPI Narrative: 28-year-old with a history of type 1 diabetes is is a 1st here with a complaint of left ankle pain, patient right was discharged from the hospital yesterday for has a trimalleolar fracture while here was trying to walk to her bathroom he lost his balance and fell on his left ankle and has worried about the fracture getting displaced . He also states that he has taken or so it is his Lantus prior to coming to the ER. Patient states that he is unable to get his narcotic prescription from [facility] as they ran out of the medication Related Data Allergies Allergy/AdvReac Type Severity Reaction Status Date / Time No Known Allergies Allergy Verified 03/13/24 22:24 Review of Systems Review of Systems: All systems reviewed & are unremarkable except as noted in HPI and below Constitutional: Constitutional: Reports no additional constitutional complaints Eyes: Eyes: Reports no additional eye complaints ENT: Reports system reviewed and no additional complaints, except as documented Cardiovascular: Cardiovascular: Reports no additional cardiovascular complaints Respiratory: Respiratory: Reports no additional respiratory complaints Gastrointestinal: Gastrointestinal: Reports no additional gastrointestinal complaints Musculoskeletal: Musculoskeletal: Reports as per HPI Integumentary/Breasts: Skin/Breast: Reports system reviewed and no additional complaints, except as docu Neurologic: Reports system reviewed and no additional complaints, except as documented PMFSH Past Medical History Medical History Anxiety and depression Type 1 diabetes mellitus Surgical History Surgical History No history of previous surgery Family History Family History Mother Hypertension Grandparent Diabetes mellitus Social History Social History Social History: The patient reports that he has worked various jobs. He has a high school education. He recently moved to [place] from [place] February 2024. He did this to be closer to his sister. He does not have children and is not . He used to smoke a pack of cigarettes per day for 10 years but quit smoking December 2023. He does not drink alcohol but he does use marijuana daily. Code status: Full code Surrogate decision maker: Don Aburto (Sister) Smoking packs per day: 1 Smoking cigarettes per day: 20.0 Years smoked: 10 Smoking pack-years: 10.00 Smoking status: Former smoker Alcohol intake: never Substance use type: marijuana Other substance usage details: daily use of marijuana Do You Feel Safe in your Home?: Yes Lack of Transportation: No Lack of Food: Never True Current Housing: I Have Housing Concerned About Future Housing: No Difficulty Paying Gas/Electric Bills: No Difficulty Paying for Meds: YES Currently Unemployed: YES Education: High School Diploma/GED Difficulty w/ Childcare or Family Care: No Spiritual care concerns: No Exam Narrative: GENERAL: Well-appearing, well-nourished, and in no acute distress. HEAD: Normocephalic, atraumatic. EYES: PERRLA and EOMI. NECK: Supple. CHEST: Clear to auscultation. No respiratory distress. HEART: Regular rate and rhythm. No murmur heard. Normal peripheral pulses EXTREMITIES: Normal range of motion. No edema. Left leg in the splint SKIN: Warm, dry, no rash. NEURO: No focal deficits. Alert and oriented x3. PSYCH: Normal mood and affect. Course Course Emergency Course: Notified patient about the x-ray there is no interval alcala
--- NOTE | 2024-03-14 01:37 | PC.NURSE ---
Patient called for a ride home since he is getting discharged. Patient states that he called for a ride and they'll be here shortly.
[2024-03-14 02:49] VITALS: BP 117/65; PULSE 82; RESP 18; TEMP 36.6; O2SAT 100
== END 2024-03-14 02:53 | disposition home or self-care (01) ==
PROVIDERS: Emergency Provider Family Medicine
DX: S82.852D Displaced trimalleolar fracture of left lower leg, subsequent encounter for closed fracture with routine healing (principal); E10.9 Type 1 diabetes mellitus without complications; Z87.891 Personal history of nicotine dependence; Z79.4 Long term (current) use of insulin; X58.XXXD Exposure to other specified factors, subsequent encounter
CPT/HCPCS: 73610; 99283; A9270